=== PATIENT | female | born 1950 | race Caucasian/White ===

== ENCOUNTER 2019-11-27 10:23 | Outpatient (CLI) | payer MEDICARE, OTHER, SELFPAY ==
--- NOTE | 2019-11-27 10:36 | MM_ITS ---
WS: [id number] BILATERAL DIGITAL SCREENING MAMMOGRAPHY WITH CAD CLINICAL INFORMATION: SCREEN HISTORY: Screening mammogram. No current complaints. COMPARISON: August 29, 2018 TECHNIQUE: Bilateral CC and MLO views. FINDINGS: Scattered fibroglandular densities bilaterally. No suspicious focal mass, asymmetry, calcifications, or architectural distortion. No evidence of malignancy. Stable coarse dystrophic calcifications in th e central breasts bilaterally. Long-term stability asymmetric densities right breast. MM/[id number] IMPRESSION: BI-RADS: 2-Benign FOLLOW UP: 1 Year Follow-up Recommend return to annual screening mammography.
== END 2019-11-27 10:24 | disposition home or self-care (01) ==
LOC: RADSHAW 10:32
PROVIDERS: PCP Family Medicine; Visit Provider Family Medicine
DX: Z12.31 Encounter for screening mammogram for malignant neoplasm of breast (principal)
CPT/HCPCS: 77067

== ENCOUNTER → 2019-12-05 11:39 | Outpatient (BNVA) | payer MEDICARE, OTHER, SELFPAY | PROVIDERS: PCP Family Medicine; Visit Provider Family Medicine | DX: I10 Essential (primary) hypertension (principal); F41.9 Anxiety disorder, unspecified; R79.0 Abnormal level of blood mineral; Z00.00 Encounter for general adult medical examination without abnormal findings; K21.9 Gastro-esophageal reflux disease without esophagitis; E78.5 Hyperlipidemia, unspecified | CPT/HCPCS: 80053; 80061; 85025 ==

== ENCOUNTER → 2020-04-23 11:40 | Outpatient (BNVA) | payer MEDICARE, OTHER, SELFPAY | PROVIDERS: PCP Family Medicine; Visit Provider Family Medicine | DX: I10 Essential (primary) hypertension (principal); E78.5 Hyperlipidemia, unspecified | CPT/HCPCS: 80053; 80061; 85025 ==

== ENCOUNTER → 2020-12-01 09:13 | Outpatient (BNVA) | payer MEDICARE, OTHER, SELFPAY | PROVIDERS: PCP Family Medicine; Visit Provider Family Medicine | DX: I10 Essential (primary) hypertension (principal) | CPT/HCPCS: 80053; 80061; 84443; 85025 ==

== ENCOUNTER → 2021-03-12 09:52 | Outpatient (BNVA) | payer MEDICARE, OTHER, SELFPAY | PROVIDERS: PCP Family Medicine; Visit Provider Family Medicine | DX: R20.2 Paresthesia of skin (principal) | CPT/HCPCS: 80053; 83735; 84443 ==

== ENCOUNTER 2021-06-25 13:46 | Emergency (ER) | payer MEDICARE, OTHER, SELFPAY ==
[2021-06-25 13:55] VITALS: BP 203/83; PULSE 74; RESP 18; TEMP 37.1; O2SAT 95; BMI 32.1
--- NOTE | 2021-06-25 14:07 | CT_ITS ---
WS: [email or web address] CT HEAD NONCONTRAST HISTORY: numbness TECHNIQUE: Contiguous axial imaging performed through the brain in 2.5 mm imaging. Bone and soft tiss ue windows. Sagittal and coronal reformats reviewed. All CT scans at [facility] use at least one of these dose optimization techniques: automated exposure control; mA and/or kV adjustment per pa tient size (includes targeted exams where dose is matched to clinical indication); or iterative recon struction. DLP: 912.62 mGy.cm COMPARISON: 06/20/2018 No acute intracranial hemorrhage, midline shift or mass effect. Very mild atrophy and chronic microvascular ischemic disease. 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 No interval change. Ventricles: Normal size with no hydrocephalus. Paranasal sinuses: As visualized are clear. Mastoid air cells: Well pneumatized. Calvarium and scalp: Skull is intact with no soft tissue edema or swelling. CT/CT head wo con* [id number] IMPRESSION: 1. No acute intracranial hemorrhage or edema. 2. Mild atrophy and mild chronic microvascular ischemic disease.
[2021-06-25 17:51] LABS: Basophils # 0.1 10^3/uL (0.0-0.1); Basophils % 0.7 %; Eosinophils # 0.1 10^3/uL (0.0-0.8); Eosinophils % 0.9 %; Hematocrit 44.1 % (37.0-47.0); Hemoglobin 14.6 g/dL (11.5-15.3); Lymphocytes # 3.5 10^3/uL (0.8-4.8); Lymphocytes % 33.1 %; Mean Corpuscular HGB Conc 33.1 g/dL (30.0-36.0); Mean Corpuscular Hemoglobin 30.7 pg (28.0-34.0); Mean Corpuscular Volume 92.8 fl (81-99); Mean Platelet Volume 11.3 fL (7.4-10.4); Monocytes # 0.6 10^3/uL (0.2-0.9); Monocytes % 5.4 %; Neutrophils # 6.31 10^3/uL (1.8-7.7); Neutrophils % 59.6 %; Nucleated Red Blood Cells % 0 %; Platelet Count 228 10^3/cmm (130-400); Red Blood Count 4.75 10^6/uL (4.1-5.3); Red Cell Distribution Width 12.8 % (12.1-15.1); White Blood Count 10.6 10^3/uL (4.0-10.0)
[2021-06-25 18:09] LABS: Alanine Aminotransferase 19 U/L (0-33); Albumin Level 4.2 g/dL (3.5-5.2); Alkaline Phosphatase 105 IU/L (35-105); Aspartate Amino Transferase 24 U/L (0-32); Blood Urea Nitrogen 10 mg/dL (8-23); Calcium 9.1 mg/dL (8.5-10.5); Carbon Dioxide 26 mmol/L (22-29); Chloride 102 mmol/L (98-107); Globulin 3.3 g/dL (1.3-4.6); Glucose 94 mg/dL (65-115); Osmolality Calculated 287 mOsm/kg (285-295); Sodium 139 mmol/L (136-145); Total Bilirubin 0.2 mg/dL (0.15-1.2); Total Protein 7.5 g/dL (6.6-8.7)
[2021-06-25 18:29] LABS: Anion Gap 15.4 (5-19); Potassium 4.4 mmol/L (3.5-5.1)
== END 2021-06-25 18:52 | disposition left against medical advice (07) ==
PROVIDERS: Emergency Medicine; Emergency Provider Family Medicine; PCP Family Medicine
DX: Z53.21 Procedure and treatment not carried out due to patient leaving prior to being seen by health care provider (principal)
CPT/HCPCS: 36415; 70450; 80053; 85025

== ENCOUNTER 2021-10-22 11:28 | Outpatient (CLI) | payer MEDICARE, OTHER, SELFPAY ==
--- NOTE | 2021-10-22 11:39 | MM_ITS ---
WS: [email or web address] BILATERAL SCREENING 3D TOMOSYNTHESIS DIGITAL MAMMOGRAM WITH CAD HISTORY: Z12.39 - Encounter for other screening for malignant neoplasm. COMPARISON: 11/27/2019 and 08/29/2018 Bilateral CC and MLO views submitted. Computer aided detection analyzed. Breast composition: There are scattered areas of fibroglandular density. No suspicious masses, microc alcifications or architectural distortion. Dense calcifications in the posterior central area of each breast. These are probably dystrophic calcifications from removal of the prior breast implants. Ther e is a benign long-term stability 6 mm nodule lateral inferior RIGHT breast. MM/[place] [id number] IMPRESSION: BI-RADS: 2-Benign FOLLOW UP: 1 Year Follow-up
== END 2021-10-22 11:29 | disposition home or self-care (01) ==
LOC: RAD 11:32
PROVIDERS: PCP Family Medicine; Visit Provider Family Medicine
DX: Z12.31 Encounter for screening mammogram for malignant neoplasm of breast (principal)
CPT/HCPCS: 77067

== ENCOUNTER → 2022-02-26 09:28 | Outpatient (BNVA) | payer MEDICARE, OTHER, SELFPAY | PROVIDERS: PCP Family Medicine; Visit Provider Family Medicine | DX: I10 Essential (primary) hypertension (principal); E78.2 Mixed hyperlipidemia | CPT/HCPCS: 80053; 80061; 84443; 85025 ==

== ENCOUNTER → 2022-08-26 10:01 | Outpatient (BNVA) | payer MEDICARE, OTHER, SELFPAY | PROVIDERS: PCP Family Medicine; Visit Provider Family Medicine | DX: I10 Essential (primary) hypertension (principal); E78.2 Mixed hyperlipidemia | CPT/HCPCS: 80053; 80061; 84443; 85025 ==

== ENCOUNTER → 2022-09-22 08:51 | Outpatient (BNVA) | payer MEDICARE, OTHER, SELFPAY | PROVIDERS: PCP Family Medicine; Visit Provider Podiatrist Foot & Ankle Surgery | DX: M21.611 Bunion of right foot (principal); S92.354A Nondisplaced fracture of fifth metatarsal bone, right foot, initial encounter for closed fracture; X58.XXXA Exposure to other specified factors, initial encounter | CPT/HCPCS: 73630; 99203 ==

== ENCOUNTER → 2022-11-03 10:40 | Outpatient (BNVA) | payer MEDICARE, OTHER, SELFPAY | PROVIDERS: PCP Family Medicine; Visit Provider Podiatrist Foot & Ankle Surgery | DX: S92.351D Displaced fracture of fifth metatarsal bone, right foot, subsequent encounter for fracture with routine healing (principal); X58.XXXD Exposure to other specified factors, subsequent encounter | CPT/HCPCS: 73630; 99213 ==

== ENCOUNTER 2022-12-21 10:09 | Outpatient (CLI) | payer MEDICARE, OTHER, SELFPAY ==
--- NOTE | 2022-12-21 10:24 | MM_ITS ---
WS: [email or web address] BILATERAL SCREENING DIGITAL TOMOSYNTHESIS MAMMOGRAM WITH CAD HISTORY: SCREENING COMPARISON: 10/22/2021, 11/27/2019 Bilateral CC and MLO views with tomosynthesis and synthetic mammography submitted. Computer aided det ection analyzed. Breast composition: There are scattered areas of fibroglandular density. No suspicious masses, microc alcifications or architectural distortion. Stable distortion and dystrophic calcifications within eac h breast. History of prior removal of breast implants. No adverse change. MM/[place] [id number] IMPRESSION: BI-RADS: 2-Benign FOLLOW UP: 1 Year Follow-up
== END 2022-12-21 10:10 | disposition home or self-care (01) ==
LOC: RAD 10:13
PROVIDERS: PCP Family Medicine; Visit Provider Family Medicine
DX: Z12.31 Encounter for screening mammogram for malignant neoplasm of breast (principal)
CPT/HCPCS: 77063; 77067

== ENCOUNTER 2023-05-17 09:56 | Outpatient (CLI) | payer MEDICARE, OTHER, SELFPAY ==
--- NOTE | 2023-05-17 10:05 | IR_ITS ---
WS: [email or web address] CERVICAL MYELOGRAM HISTORY: Cervical pain, RIGHT arm pain and tingling. COMPARISON: None available. FLUOROSCOPY TIME: 3min [id number] # of spot films: 9 Procedure, risks and complications were explained to the patient. Risks including bleeding, infection , headaches, allergic reaction and seizures. Consent has been obtained. With the patient in prone position the skin over the lumbar region is cleansed with ChloraPrep and an esthetized with lidocaine. 22-gauge spinal needle is inserted into the thecal sac at the appropriate level determined by fluoroscopy. Omnipaque 240; 12 ml is injected slowly under fluoroscopy with no co mplications. Needle bevel is perpendicular to the longitudinal fibers of the dura. Stylet is reinsert ed prior to removal of the needle. Patient tolerated the procedure well. Patient will proceed to CT f or further evaluation. Prior intracervical fusion at C6-7. Patient's head is tilted to the RIGHT for this examination. C2 an terolisthesis by 2 mm. No fractures. IMPRESSION: 1. Uncomplicated cervical myelogram. 2. Prior anterior cervical fusion with interbody spacer at C6-7. 3. C2 anterolisthesis by 2 mm.
--- NOTE | 2023-05-17 11:00 | CT_ITS ---
WS: [email or web address] CT CERVICAL MYELOGRAM HISTORY: CERVICAL PAIN Technique: All CT scans at [facility] use at least one of these dose optimization techniques: automated exposure control; mA and/or kV adjustment per patient size (includes targeted exams where dose is matched to clinical indication); or iterative reconstruction. DLP: 350.17 mGy.cm COMPARISON: None available. Good opacification of thecal sac with contrast. Prior anterior cervical fusion with interbody spacer at C6-7 appears intact. No lucency surrounding t he screws. No subsidence. Fusion across the disc space. C2-3 asymmetric disc space narrowing. Greater narrowing along the anterior disc space. Otherwise disc spaces are mildly narrowed. Small osteophyte s. No cord atrophy identified. C1-C2: Negative. C2-C3: Mild annular disc bulging encroaching upon the ventral thecal sac. Mild LEFT foramen stenosis due to facet arthritis. C3-C4: Osteophytic ridging with a shallow central disc protrusion. Bilateral facet arthritis, LEFT gr eater than RIGHT. Mild central and LEFT foramen stenosis. C4-C5: Mild disc bulging. No stenosis. C5-C6: 2 mm retrolisthesis of C5. Disc bulging and a central disc protrusion contacting the ventral t hecal sac. Mild displacement of the ventral cord. Moderate central and bilateral foraminal stenosis. Mild facet arthritis. C6-C7: No significant stenosis. C7-T1: Tiny central disc protrusion. No stenosis. Paravertebral soft tissues are negative. Mild plaque in the carotid arteries. IMPRESSION: 1. Remote anterior cervical fusion with interbody spacer at C6-7. Fusion across the disc. 2. C5-6: Moderate central and bilateral foraminal stenosis due to combination of disc and osteophyte disease. 3. Mild LEFT foramen stenosis at C2-3. 4. Mild central and LEFT foraminal stenosis at C3-4. 5. Asymmetric disc space narrowing at C2-3.
== END 2023-05-17 09:57 | disposition home or self-care (01) ==
LOC: RAD 09:57
PROVIDERS: PCP Family Medicine; Visit Provider Internal Medicine
DX: M48.02 Spinal stenosis, cervical region (principal); Z98.1 Arthrodesis status; M54.2 Cervicalgia; R20.2 Paresthesia of skin; M79.601 Pain in right arm
CPT/HCPCS: 62302; 72126; Q9966

== ENCOUNTER 2023-06-14 06:00 | Outpatient (RCR) | payer MEDICARE, OTHER, SELFPAY | END 2023-06-16 23:59 | disposition home or self-care (01) | LOC: TPT 06:00 | PROVIDERS: Visit Provider Surgery | DX: M54.12 Radiculopathy, cervical region (principal) | CPT/HCPCS: 97162 ==

== ENCOUNTER 2023-06-17 06:00 | Outpatient (RCR) | payer MEDICARE, OTHER, SELFPAY | END 2023-07-17 23:59 | disposition home or self-care (01) | LOC: TPT 06:00 | PROVIDERS: Visit Provider Surgery | DX: M54.12 Radiculopathy, cervical region (principal); M54.2 Cervicalgia | CPT/HCPCS: 97110; 97140 ==

== ENCOUNTER 2023-07-18 06:00 | Outpatient (RCR) | payer MEDICARE, OTHER, SELFPAY | END 2023-07-27 23:59 | disposition home or self-care (01) | LOC: TPT 06:00 | PROVIDERS: Visit Provider Surgery | DX: M54.2 Cervicalgia (principal) | CPT/HCPCS: 97110 ==

== ENCOUNTER → 2024-01-03 08:33 | Outpatient (BNVA) | payer MEDICARE, OTHER, SELFPAY | PROVIDERS: PCP Family Medicine; Visit Provider Family Medicine | DX: Z79.899 Other long term (current) drug therapy (principal); I10 Essential (primary) hypertension | CPT/HCPCS: 80053; 80061; 82306; 82607; 84443; 85025 ==

== ENCOUNTER → 2024-01-05 13:24 | Outpatient (BNVA) | payer MEDICARE, OTHER, SELFPAY | PROVIDERS: PCP Family Medicine; Visit Provider Family Medicine | DX: I10 Essential (primary) hypertension (principal); E78.2 Mixed hyperlipidemia; R79.89 Other specified abnormal findings of blood chemistry | CPT/HCPCS: 84439; 84443; 84481 ==

== ENCOUNTER 2024-01-12 09:28 | Outpatient (CLI) | payer MEDICARE, OTHER, SELFPAY ==
--- NOTE | 2024-01-12 09:39 | MM_ITS ---
WS: [email or web address] VIEWS: MLO and CC views both breasts. 3D digital tomosynthesis is also included in this exam. Comparison made with prior exam of 04/28/2007, 05/01/2008, 05/09/2009, 06/15/2010, 06/19/2012, 12/09/19 13, 01/09/2014, 04/01/2015, 05/19/2016, 08/17/2017, 08/29/2018, 11/27/2019, 10/22/2021, 12/22/2022,. Findings: There was no sign of mass, architectural distortion or suspicious calcification in either breast. Lar ge stable appearing dystrophic calcifications in the central posterior breast bilaterally. There are scattered areas of fibroglandular density MM/[place] [id number] Impression: BI-RADS: 2-Benign finding. FOLLOW-UP: 1 Year Follow-up This mammogram was also analyzed by the Computer Aided Detection System R2 Imag e [employer].
== END 2024-01-12 09:29 | disposition home or self-care (01) ==
LOC: RAD 09:29
PROVIDERS: Absent Provider Internal Medicine; PCP Family Medicine; Visit Provider Family Medicine
DX: Z12.31 Encounter for screening mammogram for malignant neoplasm of breast (principal); R92.323 Mammographic fibroglandular density, bilateral breasts; R92.1 Mammographic calcification found on diagnostic imaging of breast
CPT/HCPCS: 77063; 77067